=== PATIENT | female | born 1965 | race Caucasian/White ===

== ENCOUNTER 2018-03-21 09:52 | Emergency (ER) | payer BC, OTHER ==
[2018-03-21 09:58] VITALS: BP 128/74; PULSE 86; RESP 18; TEMP 98.1
--- NOTE | 2018-03-21 10:15 | ED ---
General Adult HPI - General Chief complaint: Extremity Injury, Lower Stated complaint: rt foot injury Time Seen by Provider: 03/21/18 09:59 Source: patient, RN notes reviewed, old records reviewed Mode of arrival: ambulatory Limitations: no limitations - History of Present Illness Initial comments: 53 -year-old female presenting with right foot and ankle pain. Patient states she was walking yesterday, had a mechanical fall and rolled her right ankle. She has had worsening pain with ambulation over the past 12 hours. She does report some swelling and bruising in the foot. She also complains of some leg pain just below the knee. No other injury reported. - Related Data Previous Rx's Medication Instructions Recorded Ibuprofen [Motrin] 600 mg PO Q8HR PRN #24 tab 03/21/18 Allergies Allergy/AdvReac Type Severity Reaction Status Date / Time No Known Allergies Allergy Verified 03/21/18 09:58 Review of Systems ROS Statement: Those systems with pertinent positive or pertinent negative responses have been documented in the HPI. ROS Other: All systems not noted in ROS Statement are negative. Past Medical History Past Medical History: No Reported History History of Any Multi-Drug Resistant Organisms: None Reported Additional Past Surgical History / Comment(s): Wrist luisa. Past Psychological History: Anxiety, Depression Smoking Status: Current every day smoker Past Alcohol Use History: None Reported Past Drug Use History: None Reported General Exam Limitations: no limitations General appearance: alert, in no apparent distress Head exam: Present: atraumatic, normocephalic Eye exam: Present: normal appearance, PERRL ENT exam: Present: normal exam Neck exam: Present: normal inspection. Absent: tenderness, meningismus Respiratory exam: Present: normal lung sounds bilaterally. Absent: respiratory distress, wheezes Cardiovascular Exam: Present: regular rate, normal rhythm GI/Abdominal exam: Present: soft. Absent: distended, tenderness, guarding Extremities exam: Present: tenderness (Extremity: Mild tenderness at the fibular head, no deformity noted, there is swelling and ecchymosis in the right lateral mid foot, no tenderness over the medial or lateral malleolus. Distal pulses intact, normal cap refill.), other Course Vital Signs 03/21/18 09:56 Temperature 98.1 F Pulse Rate 86 Respiratory 18 Rate Blood Pressure 128/74 O2 Sat by Pulse 97 Oximetry Medical Decision Making - Medical Decision Making 53-year-old with right foot injury. There is swelling and ecchymosis in the mid foot, x-rays obtained of both tib-fib, ankle, and foot. X-rays reviewed, does have fifth metatarsal fracture which is consistent with exam findings. Patient is placed in a splint, given crutches. Given orthopedic follow-up. Disposition Clinical Impression: Fracture of foot Disposition: HOME SELF-CARE Condition: Good Instructions: Foot Fracture in Adults (ED) Prescriptions: Ibuprofen [Motrin] 600 mg PO Q8HR PRN #24 tab PRN Reason: Pain Is patient prescribed a controlled substance at d/c from ED?: No Referrals: Uzair Calhoun MD [Primary Care Provider] - 1-2 days Kwame Mejía MD [Medical Doctor] - 1-2 days Time of Disposition: 10:41
--- NOTE | 2018-03-21 10:29 | XR ---
EXAMINATION TYPE: XR tibia fibula 2 views RT, XR ankle complete 3 views RT, XR foot complete 3 views RT DATE OF EXAM: 03/21/2018 COMPARISON: NONE HISTORY: 53-year-old female tripped and fall earlier today, pain and bruising FINDINGS: Ankle: Ankle mortise remains congruent with preservation of the distal tibiofibular overlap. Talar dome is i ntact. No acute fracture or dislocation. Subtalar joint is aligned. Tibia/fibula: No proximal tibial or fibular fracture. Foot: There is an oblique, minimally offset fracture of the fifth metatarsal shaft. The lateral sided soft tissue swelling is also present. No additional acute fracture, subluxation, or dislocation. IMPRESSION: 1. Ankle: No acute osseous abnormality seen. 2. Tibia/fibula: No acute osseous abnormality seen. 3. Foot: Long, oblique fracture that is minimally offset involving the fifth metatarsal shaft. Latera l sided soft tissue swelling.
[2018-03-21] MEDS ORDERED: IBUPROFEN 600 MG TAB PO STA (10:39)
== END 2018-03-21 10:57 | disposition home or self-care (01) ==
LOC: EC 09:52
DX: S92.351A Displaced fracture of fifth metatarsal bone, right foot, initial encounter for closed fracture (principal); F17.200 Nicotine dependence, unspecified, uncomplicated; W19.XXXA Unspecified fall, initial encounter; Y93.01 Activity, walking, marching and hiking; Y92.009 Unspecified place in unspecified non-institutional (private) residence as the place of occurrence of the external cause
CPT/HCPCS: 29515; 99284

== ENCOUNTER → 2018-06-08 | Outpatient (CLI) | payer BC ==
--- NOTE | 2018-06-09 07:51 | US ---
EXAMINATION TYPE: US pelvis complete transvag DATE OF EXAM: 06/08/2018 COMPARISON: NONE CLINICAL HISTORY: N83.209 ovarian cyst. TECHNIQUE: . Transabdominal sonographic images of the pelvis were acquired. Transvaginal sonographi c images were medically necessary to better assess the following anatomy: Uterus and ovaries Date of LMP: About 10 years ago per patient EXAM MEASUREMENTS: Uterus: 8.6 x 7.0 x 2.0 cm Endometrial Stripe: 1.5 cm Right Ovary: Not visualized with certainty Left Ovary: Not visualized with certainty 1. Uterus: Bulky, heterogeneous. To the right, there is a large solid appearing area measuring 5.8 x 6.5 x 4.5 cm. To the left, there is a large solid appearing area measuring 4.7 x 4.8 x 5.1cm, possib le fibroids vs other 2. Endometrium: Appears thickened and heterogeneous with some vascularity visualized 3. Right Ovary: Not visualized with certainty 4. Left Ovary: Not visualized with certainty 5. Bilateral Adnexa: wnl as visualized 6. Posterior cul-de-sac: wnl IMPRESSION: 1. Probable leiomyomatous change of the uterus. Masses of other etiology not excluded.
== END | disposition home or self-care (01) ==
LOC: RADUSWWP 15:26
PROVIDERS: ATTEND Family Medicine
DX: N83.209 Unspecified ovarian cyst, unspecified side (principal)
CPT/HCPCS: 76830; 76856

== ENCOUNTER → 2020-08-14 | Outpatient (CLI) | payer BC ==
--- NOTE | 2020-08-14 13:42 | MR ---
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 FINDINGS: Diffusion weighted images demonstrate no evidence of a recent infarct or other diffusion ab normality. There is no extra-axial fluid collection or significant white matter signal abnormality. The ventricular system and cisternal spaces are normal in size and appearance. The brain volume is age appropriate. Midline structures demonstrate low lying cerebellar tonsil approaching near 5 mm. Nonenhanced subcent imeter roughly 4 mm posterior pituitary focus sagittal image 77. This is unchanged from 2015 MRI. Cor relate clinically. Post contrast images demonstrate no abnormal enhancing masses. The dural venous s inuses appear patent. The visualized sinuses are clear and the globes are intact. 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 Stable. No hydrocephal us. Cannot exclude a pituitary microadenoma in the appropriate clinical setting. Finding unchanged fr om 2015 MRI. Correlate clinically. No new white matter changes or enhancing masses.
== END | disposition home or self-care (01) ==
LOC: RADMRIMAIN 06:36
PROVIDERS: ATTEND Family Medicine
DX: D35.2 Benign neoplasm of pituitary gland (principal)
CPT/HCPCS: 70553

== ENCOUNTER → 2021-08-24 | Outpatient (CLI) | payer BC ==
--- NOTE | 2021-08-28 08:33 | MM ---
Reason for Exam: Screening (asymptomatic). Baseline mammogram. Patient History: Menarche at age 14. First Full-Term at age 20. Postmenopausal. Risk Values: Sofia 5 year model risk: 0.8%. NCI Lifetime model risk: 6.0%. Film Views: Bilateral CC views were taken. Bilateral MLO views were taken. Prior Study Comparison: Patient's first Mammogram. No prior studies available for comparison. Tissue Density: The breast tissue is heterogeneously dense. This may lower the sensitivity of mammography. Findings: Analyzed By CAD. Some scattered and regional benign appearing round calcifications throughout both breasts more numerous on the right breast. There is no suspicious group of microcalcifications or suspicious mass in either breast. Overall Assessment: Benign, BI-RAD 2 Management: Screening Mammogram of both breasts in 1 year. Some advise bilateral breast ultrasound surveillance in patients with background dense tissue. Electronically signed and approved by: Rafi Anguiano M.D.
== END | disposition home or self-care (01) ==
LOC: RADMAMWWP 15:31
PROVIDERS: ATTEND Family Medicine
DX: Z12.31 Encounter for screening mammogram for malignant neoplasm of breast (principal); Z78.0 Asymptomatic menopausal state
CPT/HCPCS: 77063; 77067

== ENCOUNTER → 2021-11-05 | Outpatient (CLI) | payer BC ==
--- NOTE | 2021-11-05 13:48 | CTL ---
EXAMINATION TYPE: CT Low Dose Lung DATE OF EXAM ORDERED: 11/05/2021 HISTORY: Personal tobacco use. Lung cancer screening CT DLP: 102.[address] CTDI: 2.7 mGy Automated exposure control for dose reduction was used. SCREENING VISIT: First screening COMPARISON: None TECHNIQUE: Low dose computed tomography scan was performed through the chest at 1 mm thick sections a nd reconstructed images in multiple planes at 1 mm and [address] DIAGNOSTIC QUALITY: Satisfactory FINDINGS: LUNG NODULES: Right upper lobe calcified granuloma. Punctate left upper lobe calcified granuloma. Lef t upper lobe 4 mm groundglass nodule (series 4, image 41). Right upper lobe punctate 2 mm pulmonary n odule (series 4, image 44). Left upper lobe 4 mm noncalcified pulmonary nodule (series 4, image 82). Right lower lobe 4 mm pulmonary nodule (series 4, image 158). LUNGS: COPD: Severity: Mild centrilobular emphysematous changes. Fibrosis: Severity: None Lymph nodes: None Other findings: Biapical pleural parenchymal scarring. RIGHT PLEURAL SPACE: Effusion: None Calcification: None Thickening: Mild apical thickening. Pneumothorax: None LEFT PLEURAL SPACE: Effusion: None Calcification: None Thickening: Mild apical thickening. Pneumothorax: None HEART: Heart Size: Normal Coronary Calcification: None Pericardial Effusion: None OTHER FINDINGS: Upper abdomen: None Bony thorax: None Supraclavicular region: None Other: None IMPRESSION: Scattered pulmonary nodules measuring up to [address] LUNG RAD AND [address] CHEST RECOMMENDATION: Lung-Rad 2 Benign Appearance or Behavior: Continue annual sc reening with LDCT in 12 months. S Modifier (other clinically significant findings): None
== END | disposition home or self-care (01) ==
LOC: RADCTMAIN 12:21
PROVIDERS: ATTEND Physician Assistant Medical
DX: Z12.2 Encounter for screening for malignant neoplasm of respiratory organs (principal); R91.8 Other nonspecific abnormal finding of lung field; Z87.891 Personal history of nicotine dependence
CPT/HCPCS: 71271